=== PATIENT | male | born 1985 | race African-American/Black ===

== ENCOUNTER 2016-12-27 00:08 | Emergency (ER) | payer SELFPAY ==
[2016-12-27] MEDS ORDERED: TRANEXAMIC ACID INJ/PF 1,000 MG/10 ML SDV IV PRN (00:58)
[2016-12-27] MEDS ORDERED: LIDOCAINE 1%/EPINEPHRINE INJ 20 ML VIAL INJ ONE (00:58)
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
[2016-12-27] MEDS ORDERED: TRANEXAMIC ACID INJ/PF 1,000 MG/10 ML SDV IV ONE (01:45)
[2016-12-27] MEDS ORDERED: ACETAMINOPHEN 325 MG TABLET PO ONE (02:11)
[2016-12-27] MEDS ORDERED: CEPHALEXIN 500 MG CAPSULE PO ONE (02:42)
[2016-12-27] MEDS ORDERED: DIPH/PERTUSS(ACELL)/TETANUS VAC/PF 0.5 ML SYR (>=10YO) IM ONE (02:42)
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
[2016-12-27 03:19] VITALS: BP 138/98
== END 2016-12-27 03:00 | disposition home or self-care (01) ==
LOC: ER 00:08
PROC: 0HQ0XZZ Repair Scalp Skin, External Approach (ICD-10-PCS; principal; 2016-12-27)
DX: S01.01XA Laceration without foreign body of scalp, initial encounter (principal); F10.920 Alcohol use, unspecified with intoxication, uncomplicated; R51 Headache; F10.10 Alcohol abuse, uncomplicated; F12.90 Cannabis use, unspecified, uncomplicated; F17.200 Nicotine dependence, unspecified, uncomplicated; V87.7XXA Person injured in collision between other specified motor vehicles (traffic), initial encounter
CPT/HCPCS: 96376; 99291; 90471; 96374; 70450; 72125; 90715; 12002; J3490 ×2